=== PATIENT | male | born 1965 | race Caucasian/White ===

== ENCOUNTER 2025-02-10 17:28 | Emergency (ER) | payer OTHER ==
[~2025-02-10] VITALS: Ht 182.9 cm; Wt 127.0 kg
--- NOTE | 2025-02-10 17:46 | ED.PDOC ---
History of Present Illness HPI Comments 59 year old male with a history of HTN and DM was BIBA for the c/c of Generalized Weakness with associated Dizziness, and N/D. Pt states that he was stung by a bee earlier today, and notes his symptoms started 3x hours after the sting. Pt states that he symptoms got better of the IV Fluids administered by EM Tyshawn. Per EMS pts Accucheck was 149. Pt EKG was noted to be 95 NSR. No other symptoms or modifying factors reported at this time. Patient is alert and oriented x4. Time Seen by MD: 17:39 Reviewed Notes: Nurses Notes, Toolroom Helper Notes, Medications, Allergies Allergies: Coded Allergies: NO KNOWN ALLERGIES (Unverified , 02/10/25) Home Meds Active Scripts Ondansetron Odt 4MG Tab (ZOFRAN PO) 4 Mg Tb, 4 MG PO Q8HP PRN for 5 Days, #15 TAB ODT TAB-DISSOLVE IN MOUTH, THEN SWALLOW Prov:HÉCTOR HOUSE MD 02/10/25 Ciprofloxacin Hcl (Cipro) 500 Mg Tab, 1 TAB PO BID, #14 TAB Prov:HÉCTOR HOUSE MD 02/10/25 Information Source: Patient, Emergency Med Personnel Mode of Arrival: EMS Severity: Moderate Timing: Hours Duration: Since onset, Hours Prehospital treatment: Accucheck, IVF Past Medical History PAST MEDICAL HISTORY: DM, HTN Surgical History: Denies all surgeries Family History Family History: Family hx of heart kira, Family hx of HTN Social History Smoker: Non-Smoker Alcohol: Occasionally Drugs: Denies Drug Use Lives In: Home Constitutional: reports: weakness; denies: chills, diaphoresis, fatigue, fever, malaise, sweats, others EENTM: denies: blurred vision, double vision, ear bleeding, ear discharge, ear drainage, ear pain, ear ringing, eye pain, eye redness, hearing loss, mouth p ain, mouth swelling, nasal discharge, nose bleeding, nose congestion, nose pain, photophobia, tearing, throat pain, throat swelling, voice changes, others Respiratory: denies: cough, hemoptysis, orthopnea, SOB at rest, shortness of br eath, SOB with excertion, stridor, wheezing, others Cardiovascular: denies: chest pain, dizzy spells, diaphoresis, Dyspnea on exertion, edema, irregular heart beat, left arm pain, lightheadedness, palpitations, PND, syncope, others Gastrointestinal: reports: diarrhea, nausea; denies: abdomen distended, abdominal pain, blood streaked bowels, constipated, dysphagia, difficulty swallowing, hematemesis, melena, poor appetite, poor fluid intake, rectal bleeding, rectal pain, vomiting, others Genitourinary: denies: burning, dysuria, flank pain, frequency, hematuria, incontinence, penile discharge, penile sore, pain, testicle pain, testicle swelling, urgency, others Neurological: reports: dizziness; denies: fainting, headache, left sided numb ness, left sided weakness, numbness, paresthesia, pre-existing deficit, right sided numbness, right sided weakness, seizure, speech problems, tingling, tremors, weakness, others Musculoskeletal: denies: back pain, gout, joint pain, joint swelling, muscle pain, muscle stiffness, neck pain, others Integumetry: denies: bruises, change in color, change in hair/nails, dryness, laceration, lesions, lumps, rash, wounds, others Allergic/Immunocompromised: denies: Difficulty Healing, Frequent Infections, Hives, Itching, others Hematologic/Lymphatic: denies: anemia, blood clots, easy bleeding, easy bruising, swollen glands, others Endocrine: denies: excessive hunger, excessive sweating, excessive thirst, excessive urination, flushing, intolerance to cold, intolerance to heat, unexplained weight gain, unexplained weight loss, others Psychiatric: denies: anxiety, bipolar disorder, depression, hopeless, panic disorder, schizophrenia, sleepless, suicidal, others All Other Systems: Reviewed and Negative Physical Exam General Appearance: No Apparent Distress HEENT: Normal ENT Inspection, Pharynx Normal, TMs Normal Neck: Full Range of Motion, Non-Tender, Normal, Normal Inspection Respiratory: Chest Non-Tender, Lungs Clear, No Accessory Muscle Use, No Respiratory Distress, Normal Breath Sounds Cardiovascular: No Edema, No JVD, No Murmur, No Gallop, Normal Peripheral Pulses, Regular Rate/Rhythm Breast Exam: Deferred Gastrointestinal: No Organomegaly, Non Tender, No Pulsatile Mass, Normal Bowel Sounds, Soft Genitalia: Deferred Pelvic: Deferred Rectal: Deferred Extremities: No calf tenderness, Normal capillary refill, Normal inspection, Normal range of motion, Non-tender, No pedal edema Musculoskeletal : Apperance: Normal Neurologic: Alert, stereotyper helper II-XII nml as Tested, Motor Weakness, Normal Affect, Normal Mood, No Sensory Deficits Cerebellar Function: Normal Reflexes: Normal Skin: Dry, Normal Color, Warm Lymphatic: No Adenopathy Was a procedure done? Was a procedure done?: No EKG EKG : Pulse Rate (adult): 95 [place]: Normal Cardiac Rhythm: NSR Block: None Hypertrophy: None ST: Normal Differential Dx Considerations may include: Gastroenteritis, dehydration, viral syndrome, generalized weakness X-Ray, Labs, Meds, VS Vital Signs Date Time Temp Pulse Resp B/P (MAP) Pulse Ox O2 Delivery O2 Flow Rate FiO2 02/10/25 19:29 98.3 85 18 135/86 (102) 98 98.3 02/10/25 19:29 Room Air* 0 21 02/10/25 17:46 98.3 100 18 115/69 (84) 96 98.3 02/10/25 17:46 95 02/10/25 17:32 95 Lab Test 02/10/25 20:14 02/10/25 17:56 Range/Units Lactic Acid Level 1.8 0.4-2.0 mmol/L White Blood Count 9.6 4.4-10.8 10^3/uL Red Blood Count 5.54 4.5-5.90 10^6/uL Hemoglobin 18.3 H 13.5-17.5 g/dL Hematocrit 52.9 41.0-53.0 % Mean Corpuscular Volume 95.5 80.0-100.0 fL Mean Corpuscular Hemoglobin 33.0 H 28.0-32.0 pg Mean Corpuscular Hemoglobin Concent 34.5 32.0-36.0 g/dL Red Cell Distribution Width 13.5 11.8-14.3 % Platelet Count 205 140-450 10^3/uL Mean Platelet Volume 7.9 6.9-10.8 fL Neutrophils (%) (Auto) 91.3 H 37.0-80.0 % Lymphocytes (%) (Auto) 5.6 L 10.0-50.0 % Monocytes (%) (Auto) 2.4 0.0-12.0 % Eosinophils (%) (Auto) 0.7 0.0-7.0 % Basophils (%) (Auto) 0.0 0.0-2.0 % Neutrophils # (Auto) 8.8 H 1.6-8.6 10 ^3/uL Lymphocytes # (Auto) 0.5 0.4-5.4 10 ^3/uL Monocytes # (Auto) 0.2 0-1.3 10 ^3/uL Eosinophils # (Auto) 0.1 0-0.8 10 ^3/uL Basophils # (Auto) 0 0-0.2 10 ^3/uL Nucleated Red Blood Cells 0.3 % Sodium Level 145 136-145 mmol/L Potassium Level 3.3 L 3.5-5.1 mmol/L Chloride Level 110 H 98-107 mmol/L Carbon Dioxide Level 25 20-31 mmol/L Anion Gap 10 5-15 Blood Urea Nitrogen 19 9-23 mg/dL Creatinine 1.12 0.700-1.30 mg/dL Glomerular Filtration Rate Calc 77 >90 mL/min BUN/Creatinine Ratio 17.0 10.0-20.0 Serum Glucose 115 H 74-106 mg/dL Calcium Level 10.3 8.7-10.4 mg/dL Current Medications Medications (Trade) Dose Ordered Sig/[place]apphire Route Start Time Stop Time Status Last Admin Sodium Chloride 1,000 ml @ 1,000 mls/hr Q1H ONCE IVB 02/10/25 17:45 02/10/25 18:44 DC 02/10/25 19:18 IMPRESSION: No evidence of acute abdominopelvic abnormalities. Colonic diverticulosis without diverticulitis. Enlarged prostate with calcification. Recommend correlation with PSA. The patient's CBC and chemistry panel shows hypokalemia at three three The patient was given a 1 L bolus of normal saline The patient is feeling much better at this time. The lactic acid level is 1.8 The patient was given a prescription of Cipro and Zofran The patient will return to the emergency department's condition worsens Time of 1ST Reevaluation: 18:10 Reevaluation 1ST: Unchanged Patient Education/Counseling: Diagnosis, Treatment, Prognosis, Need For Follow Up Family Education/Counseling: No Family Present SEPSIS Sepsis Screen Physician Orders Urinalysis (02/10/25 17:38) Heplock Iv (02/10/25 17:38) Foreign Languages Department Chair (02/10/25 17:38) Blood Pressure (02/10/25 17:38) Pulse Oximetry (02/10/25 17:38) Electrocardigram (02/10/25 17:38) Clostridium Difficile Toxin (02/10/25 19:38) Ct Ab Pel Wo Con-No Oral Or Iv (02/10/25 19:57) Vital Signs Date Time Temp Pulse Resp B/P (MAP) Pulse Ox O2 Delivery O2 Flow Rate FiO2 02/10/25 19:29 98.3 85 18 135/86 (102) 98 98.3 02/10/25 19:29 Room Air* 0 21 02/10/25 17:46 98.3 100 18 115/69 (84) 96 98.3 02/10/25 17:46 95 02/10/25 17:32 95 Laboratory Tests Test 02/10/25 17:56 02/10/25 20:14 White Blood Count 9.6 10^3/uL (4.4-10.8) Lactic Acid Level 1.8 mmol/L (0.4-2.0) Medications Medications Dose Ordered Sig/[place] Route Start Time Stop Time Status Last Admin Dose Admin Sodium Chloride 1,000 ml @ 1,000 mls/hr Q1H ONCE IVB 02/10/25 17:45 02/10/25 18:44 DC 02/10/25 19:18 Departure 1 Departure Time of Disposition: 21:24 Impression: Primary Impression: Acute gastroenteritis Disposition: HOME / SELF CARE / HOMELESS Condition: Fair e-Prescriptions Ondansetron Odt 4MG Tab (ZOFRAN PO) 4 Mg Tb 4 MG PO Q8HP PRN for 5 Days, #15 TAB ODT TAB-DISSOLVE IN MOUTH, THEN SWALLOW Prov: HÉCTOR HOUSE MD 02/10/25 Ciprofloxacin Hcl (Cipro) 500 Mg Tab 1 TAB PO BID, #14 TAB Prov: HÉCTOR HOUSE MD 02/10/25 Discharged With: Self Critical Care Note Critical Care Time?: No Stability Stability form required: No Heart Score Heart Score: Heart Score Response (Comments) Value History N/A 0 EKG Normal 0 Age 45-64 1 Risk Factors 1 or 2 risk factors 1 Troponin Normal limit 0 Total 2 I personally scribed for HÉCTOR HOUSE MD ([email or web address]) on 02/10/25 at 17:46. Electronically submitted by Wesly Jacobs ([email or web address]). I personally scribed for HÉCTOR HOUSE MD ([email or web address]) on 02/10/25 at 21:03. Electronically submitted by Wesly Jacobs ([email or web address]). HÉCTOR HOUSE MD Feb 10, 2025 17:46
[2025-02-10 18:09] LABS: Nucleated Red Blood Cells % 0.3 %
[2025-02-10 18:10] LABS: Hematocrit 52.9 % (41.0-53.0); Hemoglobin 18.3 g/dL (13.5-17.5); Mean Corpuscular Hemoglobin 33.0 pg (28.0-32.0); Mean Corpuscular Volume 95.5 fL (80.0-100.0)
[2025-02-10 18:28] LABS: Anion Gap 10 (5-15); Carbon Dioxide 25 mmol/L (20-31)
[2025-02-10 18:29] LABS: Calcium 10.3 mg/dL (8.7-10.4)
[2025-02-10 18:34] LABS: BUN/Creatinine Ratio 17.0 (10.0-20.0); Blood Urea Nitrogen 19 mg/dL (9-23)
[2025-02-10 18:35] LABS: Chloride 110 mmol/L (98-107); Glucose 115 mg/dL (74-106); Potassium 3.3 mmol/L (3.5-5.1); Sodium 145 mmol/L (136-145)
[2025-02-10] MEDS: SODIUM CHLORIDE 0.9% 1,000 ML IVB ONE (19:18)
[2025-02-10 19:29] VITALS: BP 135/86; PULSE 85; RESP 18; TEMP 98.3; O2SAT 98
--- NOTE | 2025-02-10 20:47 | DVH ---
Exam: CT CT AB PEL WO CON-NO ORAL OR IV History: pain Comparison Study: None TECHNIQUE: Multidetector CT of the abdomen and pelvis without IV contrast. Axial, coronal and sagitta l multiplanar reformats were obtained from the axial data set by the technologist. Radiation Dose Information: CT Dose: CTDI volume is 25.18 mGy. Dose-length product is 1457.49 mGy*cm FINDINGS: Lingula atelectasis. Partially visualized heart is unremarkable. Liver, spleen, gallbladder, pancreas and adrenal glands are unremarkable. Kidneys, ureters and urinary bladder are unremarkable. Prostate measures 4 x 5.8 by 3.8 cm with calci fication. Stomach is unremarkable. Small bowel loops unremarkable. Appendix is unremarkable. Descending colon a nd Sigmoid diverticulosis without diverticulitis. No evidence of intraperitoneal free air or free fluid. No evidence of aortic aneurysm. Mild atherosclerotic calcification of the aorta. No significant lymphadenopathy. Small left with Moderate right fat containing inguinal hernias. Tiny fat containing umbilical hernia. Mild midline lower back Subcutaneous fat edema. No destructive osseous lesions noted. IMPRESSION: No evidence of acute abdominopelvic abnormalities. Colonic diverticulosis without diverticulitis. Enlarged prostate with calcification. Recommend correlation with PSA.
[2025-02-10] MEDS ORDERED: CIPR-173 PO (21:23)
[2025-02-10] MEDS ORDERED: ZOFR4T PO (21:23)
[2025-02-10 21:54] LABS: Urine Protein, UAD Negative (Negative)
--- NOTE | 2025-02-11 08:30 | ECG ---
[facility] Test Date: 2025-02-10 Test Time: 17:32:59 Pat Name: CESAR COSTA Department: ED Room: Gender: M Utility Operator Yarn: lakeshia : 1965 Requested By: HÉCTOR HOUSE Order Number: [id number] Reading MD: Measurements Intervals [place] Rate: 95 P: 50 VA: 192 QRS: -85 QRSD: 108 T: 58 QT: 374 QTc: 470 Interpretive Statements Sinus rhythm Incomplete RBBB and LAFB RSR' in V1 or V2, right VCD or RVH Please click the below link to view image of tracing.
== END 2025-02-10 21:40 | disposition home or self-care (01) ==
LOC: EDBD 17:28 → ER 17:33 → EEVIPCON 17:33 → ER 21:30
DX: K52.9 Noninfective gastroenteritis and colitis, unspecified (principal); F10.90 Alcohol use, unspecified, uncomplicated; E11.9 Type 2 diabetes mellitus without complications; I10 Essential (primary) hypertension; Z79.899 Other long term (current) drug therapy; Y90.9 Presence of alcohol in blood, level not specified
CPT/HCPCS: 36415; 74176; 80048; 81001; 83605; 85025; 93005; 96360; 99284; J7030